=== PATIENT | female | born 1970 | race Caucasian/White ===

== ENCOUNTER → 2017-09-12 | Outpatient (CLI) | payer BC ==
[~2017-09-12] MED LIST: ALEVE220 MG PO; CLARITIN10 MG PO; HYDROCODONE-AP1 EAC6 PO; IBUPROFEN 600600 M1 PO; MICROGESTIN1 EAC1 PO; SENOKOT-S1 TA1 PO; ZANTAC 150MG T150 MG PO
== END ==
LOC: RAD 08:22
DX: K21.9 Gastro-esophageal reflux disease without esophagitis (principal); K30 Functional dyspepsia; K82.8 Other specified diseases of gallbladder; M41.85 Other forms of scoliosis, thoracolumbar region

== ENCOUNTER 2017-10-25 05:21 | Day surgery (SDC) | payer BC ==
[2017-10-25] VITALS (11 sets, daily range): BP systolic 90–122; BP diastolic 46–74
[~2017-10-25] VITALS: Ht 167.6 cm; Wt 90.7 kg
--- NOTE | ~2017-10-25 | O ---
[facility] [place] [address] OPERATIVE REPORT Name: DARRON FLORES I Room #: 416-P [facility]..#: [id number] Admission: 10/25/17 Attend Phys: Ugo Escobar MD Discharge: Date of : 74 Report #: [id number] THIS REPORT FOR: //name// CC: Ella Escobar DATE OF SERVICE: 10/25/[address] Ugo Escobar and Dr. Ella You. PREOPERATIVE DIAGNOSES: Cholelithiasis, cholecystitis, biliary colic, gallbladder sludge. POSTOPERATIVE DIAGNOSES: Cholelithiasis, cholecystitis, biliary colic, gallbladder sludge. PROCEDURE: Laparoscopic cholecystectomy. SURGEON: Ugo Escobar MD LEAD PRINTER: Marleny Miller RN ANESTHESIA: General. DESCRIPTION OF PROCEDURE: The patient was brought to the operating room and placed on operative table in the supine position. Sequential compression devices were in place. The patient was given an appropriate preoperative dose of antibiotics. The patient underwent a general endotracheal anesthesia and the abdomen was then prepped and draped in a sterile fashion. Skin and subcutaneous tissue around the umbilicus was then infiltrated with 0.5% Marcaine. Infraumbilical skin incision was then performed using #11 scalpel blade. Hemostasis obtained using electrocautery. Dissection was carried down through subcutaneous tissue and the fascia, which was then grasped between 2 Jarocho clamps and incised with curved Panchal scissors. The peritoneum was entered and a pursestring suture of 0 Vicryl was then placed in the fascia. A 12 mm disposable Luly port was then inserted through the opening, held into place with the balloon port and the pursestring suture. Pneumoperitoneum was obtained to a level of 10-15 mmHg. Laparoscope was inserted through this port and exploration was performed, which revealed a somewhat dilated gallbladder. There were no other intra-abdominal abnormalities. Two lateral 5 mm Surgiport as well as an upper midline 11 mm Surgiport were all inserted under direct visualization after infiltration with 0.5% Marcaine. The gallbladder was then grasped and retracted superiorly and the cystic duct and artery were carefully dissected free. The cystic artery was doubly clipped on each side and divided with the scissors. The cystic duct was then quadruply clipped on the common bile duct [address] [address] OPERATIVE REPORT Name: DARRON FLORES I Room #: 416-P [facility]..#: [id number] Admission: 10/25/17 Attend Phys: Ugo Escobar MD Discharge: Date of : 74 Report #: [id number] side and doubly clipped on the gallbladder side and divided with the scissors. The gallbladder was then dissected free from the bed using the hook electrocautery. Prior to completing the dissection, the gallbladder was retracted superiorly and the bed inspected for hemostasis, which was obtained using electrocautery and found to be intact. Gallbladder was then transected and brought out through the periumbilical port and sent as specimen to pathology. The port was then returned to the abdomen. The area was inspected and there was no evidence of any bleeding. The ports were then all removed under direct visualization, hemostasis intact at each port site. Pneumoperitoneum was released and the periumbilical port was also removed under direct visualization, hemostasis intact at that port site as well. The periumbilical fascia was then closed using the 0 Vicryl pursestring suture. The upper midline fascia was then closed using a [id number] 0 Vicryl suture. Skin was then closed using interrupted vertical mattress 5-0 nylon sutures. The wound was dressed with Band-Aids. The patient was then awakened from the general endotracheal anesthesia, extubated, and taken to recovery room in good condition. Estimated blood loss was approximately 5 mL and the patient tolerated procedure well. All sponge, lap and instrument counts correct x 2. <ELECTRONICALLY SIGNED> By: Ugo Escobar MD 10/25/17 1152 1026 1111 Ugo Escobar MD /nt
--- NOTE | ~2017-10-25 | H ---
[facility] [place] [address] HISTORY AND PHYSICAL Name: DARRON FLORES I Room #: 150-2 [facility] M.R.#: [id number] Admission: 10/25/17 Attend Phys: Ugo Escobar MD Discharge: Date of : 74 Report #: [id number] THIS REPORT FOR: //name// CC: ELLA Escobar Patient of Dr. Ella You. DATE OF ADMISSION AND SURGERY: 10/25/2017. CHIEF COMPLAINT: Abdominal bloating, discomfort and nausea. HISTORY OF PRESENT ILLNESS: The patient is a 46-year-old white female with abdominal bloating, distention and discomfort. She has tried taking proton pump inhibitors and antacids with some relief, but she continues to have significant symptoms. She had an upper GI with small bowel follow through which was essentially normal. A previous ultrasound did show some gallbladder sludge, but there is no gallbladder wall thickening, no pericholecystic fluid and no common bile duct dilatation. After a full discussion with the patient, the diagnosis, prognosis, and treatment options, she is opting for proceeding with surgery. PAST MEDICAL HISTORY: Ovarian cystectomy in 2011 and 2015. Chest tube for pneumothorax in 2004, facial reconstruction in 1999. MEDICATIONS: Microgestin, Aleve, Zantac, Mylanta. ALLERGIES: No known drug allergies. FAMILY HISTORY: Noncontributory. SOCIAL HISTORY: , does not smoke, drinks alcohol occasionally. REVIEW OF SYSTEMS: Pertinent positives as above. Full review of systems otherwise negative. PHYSICAL EXAMINATION: GENERAL: Well-developed, well-nourished, obese white female, in no acute distress. VITAL SIGNS: Stable. She is afebrile. Height 65 inches, weight is 197 pounds, BMI of 33. HEENT: Sclerae are nonicteric. Mucous membranes moist and pink. NECK: No adenopathy. No thyromegaly. LUNGS: Clear to auscultation bilaterally. Normal excursion. CARDIOVASCULAR: Regular rate and rhythm. No murmurs, S3, S4. Normal PMI. ABDOMEN: Soft, flat, nontender, no palpable masses, no organomegaly, no hernias. [facility] [address] [place] [address] HISTORY AND PHYSICAL Name: DARRON FLORES I Room #: [address] [place] [address].#: [id number] Admission: 10/25/17 Attend Phys: Ugo Escobar MD Discharge: Date of : 74 Report #: [id number] EXTREMITIES: No clubbing, cyanosis or edema. NEUROLOGIC: Intact with a clear mental status. IMPRESSION: A 46-year-old white female with gallbladder sludge, possible biliary colic, possible cholecystitis. I fully discussed with the patient the diagnosis, prognosis and treatment options. I discussed with the patient that gallbladder surgery may relieve all, some and none of her symptoms. She states she understands and wished to proceed with surgery. PLAN: We will perform a laparoscopic cholecystectomy under general endotracheal anesthesia, 23-hour observation, admission to [facility]. The procedure and its risks, benefits and possible complications were fully discussed with the patient who states she understands, agrees to proposed surgery. <ELECTRONICALLY SIGNED> By: Ugo Escobar MD 10/25/17 1028 [id number] [id number] Ugo Escobar MD /nt
[2017-10-25] MEDS ORDERED: HYDROCODONE-AP1 EAC6 PO (10:38)
== END 2017-10-25 18:10 | disposition home or self-care (01) ==
LOC: OR 05:21 → TBA 05:22 → OR 08:59 → 4N 11:21 → OR 14:30 → ENTRNSPT 17:57 → OR 18:10
DX: K80.60 Calculus of gallbladder and bile duct with cholecystitis, unspecified, without obstruction (principal); K83.9 Disease of biliary tract, unspecified; K21.9 Gastro-esophageal reflux disease without esophagitis; Z88.8 Allergy status to other drugs, medicaments and biological substances; Z98.890 Other specified postprocedural states; Z79.891 Long term (current) use of opiate analgesic; Z79.899 Other long term (current) drug therapy
CPT/HCPCS: 10790; 50010; 50101; 50411; 50555; 50558; 51474; 51489; 52266; 53314; 56462; 56524; 56525; 56528